=== PATIENT | female | born 1945 | race Caucasian/White ===

== ENCOUNTER → 2016-10-20 | Outpatient (CLI) | payer MEDICARE, BC ==
[~2016-10-20] MED LIST: ALBUTEROL17 GM INH; AMITRIPTYLINE H25 MG PO; ANSAID100 MG PO; CALCIUM500 MG PO; DEPAKOTE PO; DULCOLAX STOOL SOFTE; FLOVENT DI50 MCG/DIS INH; FLOVENT7.9 GM; LEXAPRO PO; LINZESS145 MCG PO; LIPITOR20 MG PO; MEVACOR10 MG PO; MOBIC15 MG PO; MONTELUKAST SOD10 MG PO; MORGIDOX100 MG PO; MULTI-DAY VITAM1 TAB PO; NASONEX17 GM; NEXIUM PO; NYSTATIN5 ML; OMEGA 3 FISH OI1 CAP PO; OMEGA 3 FISH1 CAP.EC PO; PRAVASTATIN SOD40 MG PO; PRILOSEC PO; PRO OMEGA PO; REMERON15 MG PO; REQUIP0.25 MG PO; TRICOR134 MG PO; VIMPAT50 MG PO; VITIMIN D PO; ZETIA PO; [UNRECOGNIZED DRUG - OTHER]; [UNRECOGNIZED DRUG - OTHER] PO; [UNRECOGNIZED DRUG - OTHER] TOP
--- NOTE | ~2016-10-20 | CR212 ---
[facility] A Service of [facility] & [facility] RADIOLOGY TEXT RESULTS PATIENT: BIBI GUERRIER LOCATION: [facility] : 43 UNIT #: [id number] AGE: [address]: FAITH JOHNSON APRN SEX: F ORDER DR: [id number] [facility] [address] [place], [place] [address] [id number] O MR#: [id number] Acc #: [id number] NAME: BIBI GUERRIER : 1945 SEX: F STUDY DATE/TIME: 10/20/2016 11:41 UNIT: [facility] ROOM: STUDY DESCRIPTION: CR Ribs Unilateral 2 View Lt Attending Physician: Faith Johnson Np Referring Physician: Faith Johnson Np Ordering Physician: Faith Johnson Np Primary Care Physician: Dunia Hall M.D. MEDICAL IMAGING REPORT This report is preliminary unless electronic signature is present EXAM Left rib series 10/20/2016 HISTORY 71-year-old female with left-sided chest pain 2 weeks. COMPARISON Chest x-ray 10/20/2016 FINDINGS 4 views of the left-sided ribs demonstrate no evidence of a displaced left rib fracture. No other acute bony abnormality. Lungs are clear. No pneumothorax. Heart size and mediastinum within normal limits. IMPRESSION No evidence of a displaced left-sided rib fracture. No other acute chest findings. Dictated by... Benson Miranda M.D. THIS IS AN ELECTRONICALLY VERIFIED REPORT Benson Miranda M.D. at 10/22/2016 4:10 PM SNEHAL/ambar TD: 10/21/2016 23:57 JOB #: [id number] MEDICAL IMAGING REPORT Page 1 of 1 COPY
--- NOTE | ~2016-10-20 | CR63 ---
[facility] A Service of [facility] & [facility] RADIOLOGY TEXT RESULTS PATIENT: BIBI GUERRIER LOCATION: [facility] : 43 UNIT #: [id number] AGE: [address]: FAITH JOHNSON APRN SEX: F ORDER DR: [id number] [facility] [address] [place], [place] [address] [id number] O MR#: [id number] Acc #: [id number] NAME: BIBI GUERRIER : 1945 SEX: F STUDY DATE/TIME: 10/20/2016 11:41 UNIT: [facility] ROOM: STUDY DESCRIPTION: CR Chest 2 View Attending Physician: Faith Johnson Np Referring Physician: Faith Johnson Np Ordering Physician: Faith Johnson Np Primary Care Physician: Dunia Hall M.D. MEDICAL IMAGING REPORT This report is preliminary unless electronic signature is present EXAM PA and lateral chest HISTORY Pain under breasts and shortness of breath for 2 weeks. This began after patient was cleaning a door. FINDINGS PA and lateral views of the chest are obtained. The heart size appears normal. The vascular pattern appears normal. Lungs appear clear with no acute process seen. There is hyperinflation suggesting underlying emphysema. CONCLUSION Hyperinflation suggesting underlying emphysema. No acute process seen. Dictated by... Ganesh Burton M.D. THIS IS AN ELECTRONICALLY VERIFIED REPORT Ganesh Burton M.D. at 10/23/2016 2:20 PM REILLY/lianet TD: 10/20/2016 19:15 JOB #: [id number] MEDICAL IMAGING REPORT Page 1 of 1 COPY
== END | disposition home or self-care (01) ==
LOC: CRAD 11:09
DX: R07.81 Pleurodynia (principal); J98.4 Other disorders of lung
CPT/HCPCS: 71020; 71100

== ENCOUNTER → 2016-11-03 | Outpatient (CLI) | payer MEDICARE, BC ==
--- NOTE | ~2016-11-03 | BD1 ---
[facility] A Service of [facility] & [facility] RADIOLOGY TEXT RESULTS PATIENT: BIBI GUERRIER LOCATION: [facility] : 43 UNIT #: [id number] AGE: [address]: YOLIE THORPE MD SEX: F ORDER DR: [id number] [facility] [place] [facility] [address] [place], [place] [address] [id number] O MR#: [id number] Acc #: [id number] NAME: BIBI GUERRIER : 1945 SEX: F STUDY DATE/TIME: 11/03/2016 12:15 UNIT: [facility] ROOM: STUDY DESCRIPTION: BD Dexa Bone Dens 1+ Site Attending Physician: Yolie Thorpe M.D. Ordering Physician: Yolie Thorpe M.D. Primary Care Physician: Yolie Thorpe M.D. MEDICAL IMAGING REPORT This report is preliminary unless electronic signature is present EXAM DXA scan 11/03/2016 HISTORY Status post menopause with no hormone replacement therapy. Osteopenia. Arthritis. Multiple sclerosis. Hypertension with blood pressure medication for several years. FINDINGS Bone mineral density in the lumbar spine from L1-L4 is 1.07 g/cm2 which is 0.2 standard deviations above the mean when compared to the young adult reference population which is within the range of normal. This is 2.5 standard deviations above the mean when compared to the age-matched population. Compared with 11/08/2012, there has been an increase in bone mineral density in the lumbar spine of 4.1%. Bone mineral density in the left femoral neck was 0.638 g/cm2 which is 1.9 standard deviations below the mean when compared to the young adult reference population which is characteristic of osteopenia. This is 0.1 standard deviations above the mean when compared to the age-matched population. Compared with 11/08/2012, there has been an increase in bone mineral density in the left hip of 3.9%. IMPRESSION Bone mineral density in the lumbar spine within the range of normal and within the left hip characteristic of osteopenia. Compared with 11/08/2012, there has been an increase in bone mineral density in the lumbar spine and the left hip. Dictated by... Satya Meyer M.D. [facility]. [facility] A Service of [facility] & [facility] RADIOLOGY TEXT RESULTS PATIENT: BIBI GUERRIER [id number] 41 UNIT #: [id number] AGE: [address]: YOLIE THORPE MD SEX: F ORDER DR: THIS IS AN ELECTRONICALLY VERIFIED REPORT Satya Meyer M.D. at 11/04/2016 7:29 AM KRT/tri TD: 11/03/2016 15:45 JOB #: [id number] MEDICAL IMAGING REPORT Page 1 of 1 COPY
== END | disposition home or self-care (01) ==
LOC: CWCC 11:36
DX: Z78.0 Asymptomatic menopausal state (principal); M41.9 Scoliosis, unspecified; M85.88 Other specified disorders of bone density and structure, other site
CPT/HCPCS: 77080

== ENCOUNTER → 2016-12-01 | Outpatient (CLI) | payer MEDICARE, BC ==
--- NOTE | ~2016-12-01 | MY11 ---
[facility] A Service of [facility] RADIOLOGY TEXT RESULTS PATIENT: BIBI GUERRIER LOCATION: [facility] : 41 UNIT #: [id number] AGE: [address]: YOLIE THORPE MD SEX: F ORDER DR: [id number] [facility] [address] [place], [place] [address] [id number] O MR#: [id number] Acc #: [id number] NAME: BIBI GUERRIER : 1945 SEX: F STUDY DATE/TIME: 12/01/2016 11:45 UNIT: [facility] ROOM: STUDY DESCRIPTION: MY Mammogram Screening Dig Yony Attending Physician: Yolie Thorpe M.D. Referring Physician: Yolie Thorpe M.D. Ordering Physician: Yolie Thorpe M.D. Primary Care Physician: Yolie Thorpe M.D. MEDICAL IMAGING REPORT This report is preliminary unless electronic signature is present EXAM Digital screening mammogram 12/01/2016. HISTORY A 71-year-old woman annual screening. No risk elevation. COMPARISON STUDIES 10/03/2014 with followup diagnostic left breast imaging 11/02/2014, most recent screening 11/28/2015 Digital imaging of each breast was completed utilizing a two-view examination of each breast in craniocaudal and mediolateral-oblique projections. Review and interpretation of digital mammograms include a second review in conjunction with FDA-approved CAD device. There is a normal parenchymal presentation bilaterally consistent with the patient's age. There are no breast masses imaged and no parenchymal asymmetry is visualized. There are no suspicious microcalcifications and I see no focal architectural disturbance. IMPRESSION Negative screening digital mammogram. One-year followup recommended. Patients over the age of 40 are entered into a reminder system with target due date for the next mammogram. A result letter will also be sent to the patient. BIRADS: 1 Negative Dictated by... Silvano Rosas M.D. [facility] A Service of [facility] RADIOLOGY TEXT RESULTS PATIENT: BIBI GUERRIER LOCATION: [facility] : 41 UNIT #: [id number] AGE: [address]: YOLIE THORPE MD SEX: F ORDER DR: THIS IS AN ELECTRONICALLY VERIFIED REPORT Silvano Rosas M.D. at 12/01/2016 2:26 PM Mike TD: 12/01/2016 13:35 JOB #: [id number] MEDICAL IMAGING REPORT Page 1 of 1 COPY
== END | disposition home or self-care (01) ==
LOC: CWCC 10:45 → CMAM 10:45 → CWCC 11:15
DX: Z12.31 Encounter for screening mammogram for malignant neoplasm of breast (principal)
CPT/HCPCS: G0202